=== PATIENT | female | born 1980 | race African-American/Black ===

== ENCOUNTER 2018-04-28 12:35 | Emergency (ER) | payer MEDICAID ==
[~2018-04-28] VITALS: Ht 177.8 cm; Wt 100.0 kg
[2018-04-28] MEDS ORDERED: FAMOTIDINE 20MG/2ML VIAL IV STA (15:36)
[2018-04-28] MEDS ORDERED: ONDANSETRON HCL 4MG/2ML INJ IV STA (15:36)
[2018-04-28] MEDS ORDERED: SODIUM CHLORIDE 0.9% 1,000 ML IV ONE (15:36)
[2018-04-28] MEDS ORDERED: MAGNESIUM/ALUMINUM HYDROXIDE/SIMETHICONE 30ML UDC PO STA (15:36)
[2018-04-28 16:44] LABS: BASOPHILS % 0.1 % (0.0-2.0); EOSINOPHILS % 1.4 % (0.0-5.0); HEMATOCRIT. 33.5 % (36.0-48.0); HEMOGLOBIN. 11.2 g/dL (12.0-16.0); LYMPHOCYTES % 17.5 % (20.0-50.0); MEAN CORPUSCULAR HEMOGLOBIN 28.2 pg (28.0-32.0); MEAN CORPUSCULAR VOLUME 84.6 fL (81.0-99.0); MEAN PLATELET VOLUME 9.3 fl (7.4-10.4); MONOCYTES % 6.7 % (2.0-8.0); NEUTROPHILS % 74.3 % (40.0-76.0); PLATELET 174 x1000/uL (130-400); RED BLOOD CELL COUNT 3.96 mill/uL (4.2-5.4); RED CELL DISTRIBUTION WIDTH 14.3 % (11.6-14.6)
[2018-04-28 16:50] LABS: INR 1.1; PROTHROMBIN TIME 10.6 sec (9.1-11.1)
[2018-04-28 16:51] LABS: CHLORIDE 105 mEq/L (98-107)
[2018-04-28 17:17] LABS: B-HCG QUANTITATIVE 28755 mIU/mL (<3)
[2018-04-28 21:55] VITALS: BP 107/80
== END 2018-04-28 21:56 | disposition home or self-care (01) ==
LOC: ER 13:54
DX: O20.0 Threatened abortion (principal); O16.2 Unspecified maternal hypertension, second trimester; Z3A.21 21 weeks gestation of pregnancy; Z98.890 Other specified postprocedural states
CPT/HCPCS: 36415; 76805; 80053; 83690; 84484; 84702; 85025; 85610; 86850; 86900; 86901; 93005; 96361; 96374; 96375; 99284; J2405; J3490; J7030

== ENCOUNTER 2019-01-15 10:50 | Emergency (ER) | payer MEDICAID ==
[~2019-01-15] VITALS: Ht 180.3 cm; Wt 108.0 kg
[2019-01-15 12:02] LABS: BASOPHILS % 0.2 % (0.0-2.0); EOSINOPHILS % 0.8 % (0.0-5.0); HEMATOCRIT. 37.4 % (36.0-48.0); HEMOGLOBIN. 12.3 g/dL (12.0-16.0); LYMPHOCYTES % 14.3 % (20.0-50.0); MEAN CORPUSCULAR HEMOGLOBIN 26.2 pg (28.0-32.0); MEAN CORPUSCULAR VOLUME 79.6 fL (81.0-99.0); MEAN PLATELET VOLUME 8.4 fl (7.4-10.4); MONOCYTES % 6.8 % (2.0-8.0); NEUTROPHILS % 77.9 % (40.0-76.0); PLATELET 203 x1000/uL (130-400); RED CELL DISTRIBUTION WIDTH 17.2 % (11.6-14.6)
[2019-01-15 12:07] LABS: CHLORIDE 103 mEq/L (98-107)
[2019-01-15 12:10] LABS: CLARITY URINE CLEAR (CLEAR); COLOR URINE YELLOW (YELLOW); KETONES URINE NEGATIVE (NEGATIVE); LEUKOCYTE ESTERASE URINE NEGATIVE (NEGATIVE); NITRITE URINE NEGATIVE (NEGATIVE); OCCULT BLOOD URINE 2+ (NEGATIVE); PROTEIN URINE NEGATIVE (NEGATIVE); SPECIFIC GRAVITY URINE 1.013 (1.005-1.030); UROBILINOGEN URINE 0.2 E.U./dL (0.2-1.0)
[2019-01-15 12:50] VITALS: BP 128/85
== END 2019-01-15 13:56 | disposition home or self-care (01) ==
LOC: ER 13:18
DX: R53.1 Weakness (principal); I10 Essential (primary) hypertension; Z98.890 Other specified postprocedural states
CPT/HCPCS: 36415; 81003; 93005; 99284

== ENCOUNTER 2021-09-16 17:03 | Observation (INO) | payer MEDICAID ==
[~2021-09-16] VITALS: Ht 180.3 cm; Wt 137.0 kg
[2021-09-16] MEDS ORDERED: ASPI-1497 MT (18:28)
[2021-09-16] MEDS ORDERED: LABE200T9 MT (18:28)
[2021-09-16] MEDS ORDERED: LABETALOL HCL 100MG TABLET PO NR (20:09)
== END 2021-09-16 22:18 | disposition home or self-care (01) ==
LOC: L&D 17:03 → 8 EST LDRP 17:20
PROVIDERS: ADMIT Obstetrics & Gynecology; ATTEND Obstetrics & Gynecology
DX: O13.3 Gestational [pregnancy-induced] hypertension without significant proteinuria, third trimester (principal); Z79.899 Other long term (current) drug therapy; Z3A.38 38 weeks gestation of pregnancy
CPT/HCPCS: 76805; 76818; G0378; 59025

== ENCOUNTER 2021-09-20 07:41 | Inpatient (IN) | payer MEDICAID ==
[~2021-09-20] VITALS: Ht 180.3 cm; Wt 137.0 kg
[~2021-09-20 07:41] MED LIST: ASPI-1497 MT; LABE200T9 MT
[2021-09-20] MEDS ORDERED: CITRIC ACID/SODIUM CITRATE SOLN 30ML UDC PO NR (08:15)
[2021-09-20] MEDS ORDERED: DEXT 5%/LR + PITOCIN 20UNITS/L 1,000 ML IV SCH ×2 (08:30→13:15)
[2021-09-20] MEDS ORDERED: NALOXONE HCL 0.4 MG/ML 1ML VIAL IM PRN (08:30)
[2021-09-20] MEDS ORDERED: METHYLERGONOVINE MALEATE 0.2 MG/ML IM PRN (08:30)
[2021-09-20] MEDS ORDERED: CARBOPROST TROMETHAMINE 250 MCG/ML AMPUL IM PRN (08:30)
[2021-09-20 08:47] LABS: BASOPHILS % 0.1 % (0.0-2.0); EOSINOPHILS % 1.3 % (0.0-5.0); HEMATOCRIT. 33.4 % (36.0-48.0); HEMOGLOBIN. 11.4 g/dL (12.0-16.0); LYMPHOCYTES % 18.3 % (20.0-50.0); MEAN CORPUSCULAR HEMOGLOBIN 27.1 pg (28.0-32.0); MEAN CORPUSCULAR VOLUME 79.3 fL (81.0-99.0); MONOCYTES % 7.6 % (2.0-8.0); NEUTROPHILS % 72.7 % (40.0-76.0); PLATELET 184 x1000/uL (130-400); RED BLOOD CELL COUNT 4.21 mill/uL (4.2-5.4); RED CELL DISTRIBUTION WIDTH 16.6 % (11.6-14.6)
[2021-09-20 08:51] LABS: PARTIAL THROMBOPLASTIN TIME 23.9 sec (23.4-31.0); PROTHROMBIN TIME 10.4 sec (9.6-11.0)
[2021-09-20] MEDS: LACTATED RINGERS 1,000 ML IV SCH ×2 (09:02→11:30)
[2021-09-20] MEDS ORDERED: FENTANYL CITRATE/PF 50MCG/ML 2ML VIAL ONE (09:06)
[2021-09-20] MEDS ORDERED: MORPHINE SULFATE/PF 1MG/ML 10ML AMP ONE (09:06)
[2021-09-20] MEDS ORDERED: EPHEDRINE SULFATE 50MG/ML VIAL ONE (09:07)
[2021-09-20] MEDS ORDERED: PHENYLEPHRINE HCL 10 MG/ML 1ML (IV VIAL) IV ONE (09:07)
[2021-09-20] MEDS ORDERED: DIPHENHYDRAMINE 50MG/ML VIAL ONE (09:07)
[2021-09-20] MEDS ORDERED: CEFAZOLIN SODIUM 1000MG/VIAL ONE (09:07)
[2021-09-20] MEDS ORDERED: OXYTOCIN 10 UNITS/ML 1ML ONE (09:07)
[2021-09-20] MEDS ORDERED: ONDANSETRON HCL 4MG/2ML INJ ONE ×2 (09:07→09:15)
[2021-09-20 09:18] LABS: CHLORIDE 107 mEq/L (98-107)
[2021-09-20 09:35] LABS: HEPATITIS B SURFACE ANTIGEN NEGATIVE
[2021-09-20] MEDS ORDERED: LABETALOL HCL 5MG/ML VIAL 20ML IV PRN (10:30)
[2021-09-20 11:27] LABS: CLARITY URINE CLEAR (CLEAR); COLOR URINE YELLOW (YELLOW); KETONES URINE NEGATIVE (NEGATIVE); LEUKOCYTE ESTERASE URINE NEGATIVE (NEGATIVE); NITRITE URINE NEGATIVE (NEGATIVE); OCCULT BLOOD URINE NEGATIVE (NEGATIVE); PH URINE 6.5 (4.5-8.0); PROTEIN URINE NEGATIVE (NEGATIVE); SPECIFIC GRAVITY URINE 1.013 (1.005-1.030); UROBILINOGEN URINE 0.2 E.U./dL (0.2-1.0)
[2021-09-20 11:57] LABS: *AMPHETAMINES SCREEN URINE NEGATIVE (NEGATIVE); *BARBITURATES SCREEN URINE NEGATIVE (NEGATIVE); *BENZODIAZEPINES SCREEN URINE NEGATIVE (NEGATIVE); *COCAINE SCREEN URINE NEGATIVE (NEGATIVE); CANNABINOID URINE SCREEN NEGATIVE (NEGATIVE); METHADONE URINE SCREEN NEGATIVE (NEGATIVE); OPIATES URINE SCREEN NEGATIVE (NEGATIVE); PHENCYCLIDINE URINE SCREEN NEGATIVE (NEGATIVE)
[2021-09-20] MEDS ORDERED: KETOROLAC 60MG/2ML VIAL IM ONE (12:37)
[2021-09-20] MEDS ORDERED: ONDANSETRON HCL 4MG/2ML INJ IV PRN (13:15)
[2021-09-20] MEDS ORDERED: NALOXONE HCL 0.4 MG/ML 1ML VIAL IV PRN (13:15)
[2021-09-20] MEDS ORDERED: DIPHENHYDRAMINE 50MG/ML VIAL IV PRN (13:15)
[2021-09-20] MEDS ORDERED: LANOLIN OINT 7GM TUBE TOP PRN (13:15)
[2021-09-20] MEDS ORDERED: IBUPROFEN 400MG TABLET PO PRN (13:15)
[2021-09-20] MEDS ORDERED: MAGNESIUM 4 G PREMIX 100 ML IV NR (13:15)
[2021-09-20] MEDS ORDERED: NALOXONE HCL 0.4MG/ML VIAL IV PRN (13:15)
[2021-09-20] MEDS ORDERED: BUTORPHANOL TARTRATE 2 MG/ML VIAL IV PRN (13:15)
[2021-09-20] MEDS ORDERED: RHO(D) IMMUNE GLOBULIN 300 MCG/SYR IM PRN (13:15)
[2021-09-20] MEDS ORDERED: BISACODYL 10MG SUPP PR PRN (13:15)
[2021-09-20] MEDS: MAGNESIUM 20 G PREMIX (L & D) 500 ML IV SCH (13:48)
[2021-09-20 15:30] VITALS: BP 121/75
[2021-09-20 15:45] VITALS: BP 126/90
[2021-09-20] MEDS: LABETALOL HCL 200MG TABLET PO SCH ×2 (15:49→22:03)
[2021-09-20] MEDS: KETOROLAC 30MG/ML VIAL IV SCH ×2 (15:49→22:02)
[2021-09-20 16:45] VITALS: BP 130/78
[2021-09-20] MEDS: SIMETHICONE 80MG TABLET CHEW PO SCH (19:58)
[2021-09-20] MEDS: DOCUSATE SODIUM 100MG CAPSULE PO SCH (19:59)
[2021-09-20 20:00] VITALS: BP 120/77
[2021-09-20] MEDS ORDERED: DIPHENHYDRAMINE 25MG CAPSULE PO PRN (21:00)
[2021-09-21 00:09] VITALS: BP 131/82
[2021-09-21 04:00] VITALS: BP 115/68
[2021-09-21] MEDS: KETOROLAC 30MG/ML VIAL IV SCH (04:52)
[2021-09-21] MEDS: LABETALOL HCL 200MG TABLET PO SCH ×3 (05:55→21:59)
[2021-09-21] MEDS: MAGNESIUM 20 G PREMIX (L & D) 500 ML IV SCH (06:00)
[2021-09-21 06:55] LABS: BASOPHILS % 0.2 % (0.0-2.0); EOSINOPHILS % 1.3 % (0.0-5.0); HEMATOCRIT. 26.7 % (36.0-48.0); LYMPHOCYTES % 13.1 % (20.0-50.0); MEAN CORPUSCULAR HEMOGLOBIN 26.7 pg (28.0-32.0); MEAN CORPUSCULAR VOLUME 79.3 fL (81.0-99.0); MEAN PLATELET VOLUME 9.7 fl (7.4-10.4); MONOCYTES % 9.2 % (2.0-8.0); NEUTROPHILS % 76.2 % (40.0-76.0); PLATELET 146 x1000/uL (130-400); RED BLOOD CELL COUNT 3.36 mill/uL (4.2-5.4); RED CELL DISTRIBUTION WIDTH 16.6 % (11.6-14.6)
[2021-09-21 08:00] VITALS: BP 104/61
[2021-09-21] MEDS: FERROUS SULFATE 325MG TABLET PO SCH ×3 (08:01→17:54)
[2021-09-21] MEDS: SIMETHICONE 80MG TABLET CHEW PO SCH ×4 (08:01→20:12)
[2021-09-21] MEDS: PRENATAL VIT/FE FUMARATE/FA TABLET PO SCH (09:00)
[2021-09-21] MEDS: ACETAMINOPHEN WITH CODEINE 300/30MG TABLET PO PRN ×2 (12:33→20:15)
[2021-09-21 13:43] VITALS: BP 125/72
[2021-09-21 16:00] VITALS: BP 121/78
[2021-09-21 20:00] VITALS: BP 135/86
[2021-09-21] MEDS: DOCUSATE SODIUM 100MG CAPSULE PO SCH (20:12)
[2021-09-22] VITALS: BP 116/82
[2021-09-22] MEDS: ACETAMINOPHEN WITH CODEINE 300/30MG TABLET PO PRN (00:38)
[2021-09-22] MEDS: IBUPROFEN 800MG TABLET PO PRN ×3 (03:25→17:49)
[2021-09-22 03:58] VITALS: BP 135/81
[2021-09-22] MEDS: LABETALOL HCL 200MG TABLET PO SCH ×3 (05:54→21:47)
[2021-09-22 08:00] VITALS: BP 144/80
[2021-09-22] MEDS: SIMETHICONE 80MG TABLET CHEW PO SCH ×4 (08:51→21:47)
[2021-09-22] MEDS: FERROUS SULFATE 325MG TABLET PO SCH ×3 (08:51→17:49)
[2021-09-22] MEDS: PRENATAL VIT/FE FUMARATE/FA TABLET PO SCH (08:51)
[2021-09-22 16:00] VITALS: BP 141/90
[2021-09-22 21:18] VITALS: BP 145/88
[2021-09-22] MEDS: DOCUSATE SODIUM 100MG CAPSULE PO SCH (21:47)
[2021-09-23] VITALS: BP 144/80
[2021-09-23] MEDS: IBUPROFEN 800MG TABLET PO PRN ×2 (04:32→10:35)
[2021-09-23 04:58] VITALS: BP 161/81
[2021-09-23] MEDS: LABETALOL HCL 200MG TABLET PO SCH (06:22)
[2021-09-23] MEDS ORDERED: IBUP-2030 PO (07:05)
[2021-09-23] MEDS ORDERED: LABE200T9 PO (07:06)
[2021-09-23 08:00] VITALS: BP 160/94
[2021-09-23 10:35] VITALS: BP 160/94
== END 2021-09-23 13:00 | disposition home or self-care (01) | DRG 539 ==
LOC: OBSVTOIN 07:41 → 8 EST LDRP 07:41 → 8EST 15:20
PROVIDERS: ADMIT Obstetrics & Gynecology; ATTEND Obstetrics & Gynecology
PROC: 10D00Z1 Extraction of Products of Conception, Low, Open Approach (ICD-10-PCS; principal; 2021-09-20)
PROC: 0UB70ZZ Excision of Bilateral Fallopian Tubes, Open Approach (ICD-10-PCS; 2021-09-20)
PROC: 0UN90ZZ Release Uterus, Open Approach (ICD-10-PCS; 2021-09-20)
DX: O34.211 Maternal care for low transverse scar from previous cesarean delivery (principal); O24.92 Unspecified diabetes mellitus in childbirth; O13.4 Gestational [pregnancy-induced] hypertension without significant proteinuria, complicating childbirth; D62 Acute posthemorrhagic anemia; Z20.822 Contact with and (suspected) exposure to COVID-19; O99.892 Other specified diseases and conditions complicating childbirth; N73.6 Female pelvic peritoneal adhesions (postinfective); O99.214 Obesity complicating childbirth; O99.02 Anemia complicating childbirth; Z3A.38 38 weeks gestation of pregnancy; Z37.0 Single live birth; Z30.2 Encounter for sterilization
CPT/HCPCS: 36415; 80053; 80305; 80359; 81003; 83735; 85025; 86592; 86703; 86762; 86850; 86900; 86920; 87340; 87426; 88302; 88307; G0378; J0690; J1200; J1885; J2274; J2370; J2405; J2590; J3010; J3475; J3490; J7120

== ENCOUNTER 2023-01-29 20:01 | Emergency (ER) | payer MEDICAID ==
[~2023-01-29] VITALS: Ht 167.6 cm; Wt 127.2 kg
[~2023-01-29 20:01] MED LIST changes: +IBUP-2030 PO; -LABE200T9 MT; +LABE200T9 PO
[2023-01-29 20:07] VITALS: BP 184/108; PULSE 73; RESP 16; TEMP 98.6; O2SAT 100
[2023-01-29 21:06] LABS: BASOPHILS % 0.2 % (0.0-2.0); EOSINOPHILS % 1.5 % (0.0-5.0); HEMATOCRIT. 34.5 % (36.0-48.0); HEMOGLOBIN. 11.3 g/dL (12.0-16.0); LYMPHOCYTES % 27.2 % (20.0-50.0); MEAN CORPUSCULAR HEMOGLOBIN 26.5 pg (28.0-32.0); MEAN CORPUSCULAR HGB CONC 32.8 g/dL (31.0-37.0); MEAN CORPUSCULAR VOLUME 80.7 fL (81.0-99.0); MEAN PLATELET VOLUME 8.9 fl (7.4-10.4); MONOCYTES % 6.3 % (2.0-8.0); NEUTROPHILS % 64.8 % (40.0-76.0); PLATELET 223 x1000/uL (130-400); RED BLOOD CELL COUNT 4.27 mill/uL (4.2-5.4); RED CELL DISTRIBUTION WIDTH 15.8 % (11.6-14.6)
[2023-01-29 21:22] LABS: HCG SCREEN NEGATIVE
[2023-01-29 21:23] LABS: CHLORIDE 104 mEq/L (98-107); INDEX HEMOLYSI 2 (1-3); INDEX ICTERIC 1 (1-4); INDEX LIPEMIC 1 (1-3); SODIUM 136 mEq/L (136-145)
[2023-01-29 21:33] LABS: ALANINE AMINOTRANSFERASE 20 IU/L (13-61); ALBUMIN 3.5 g/dL (3.4-5.0); ASPARTATE AMINOTRANSFERASE 22 IU/L (15-37); BILIRUBIN TOTAL 0.4 mg/dL (0.1-1.0); CALCIUM 8.7 mg/dL (8.5-10.1); CARBON DIOXIDE 27 mEq/L (21-32); CREATININE 0.8 mg/dL (0.6-1.3); GLUCOSE 97 mg/dL (70-105); NT PRO B-TYPE NATRIURETIC PEP 243 pg/mL (5-125); PROTEIN TOTAL 7.4 g/dL (6.0-8.3); TROPONIN I HIGH SENSITIVITY 8 ng/L (<54); UREA NITROGEN BLOOD 15 mg/dL (7-21)
[2023-01-29 23:32] LABS: TROPONIN I HIGH SENSITIVITY 8 ng/L (<54)
== END 2023-01-30 00:58 | disposition home or self-care (01) ==
LOC: ER 20:01
DX: R07.9 Chest pain, unspecified (principal); I10 Essential (primary) hypertension; Z98.890 Other specified postprocedural states
CPT/HCPCS: 36415; 71045; 80053; 83880; 84484; 84703; 85025; 85379; 93005; 99285

== ENCOUNTER 2023-10-28 20:14 | Emergency (ER) | payer MEDICAID ==
[~2023-10-28] VITALS: Ht 175.3 cm; Wt 127.1 kg
[2023-10-28 20:36] VITALS: O2SAT 99
[2023-10-28 23:07] LABS: BASOPHILS % 0.2 % (0.0-2.0); EOSINOPHILS % 1.7 % (0.0-5.0); HEMATOCRIT. 33.9 % (36.0-48.0); HEMOGLOBIN. 11.1 g/dL (12.0-16.0); LYMPHOCYTES % 29.2 % (20.0-50.0); MEAN CORPUSCULAR HEMOGLOBIN 27.1 pg (28.0-32.0); MEAN CORPUSCULAR HGB CONC 32.8 g/dL (31.0-37.0); MEAN CORPUSCULAR VOLUME 82.6 fL (81.0-99.0); MONOCYTES % 6.6 % (2.0-8.0); NEUTROPHILS % 62.3 % (40.0-76.0); PLATELET 186 x1000/uL (130-400); RED CELL DISTRIBUTION WIDTH 15.3 % (11.6-14.6); WHITE BLOOD COUNT 6.2 x1000/uL (4.5-11.0)
[2023-10-28 23:12] LABS: CHLORIDE 106 mEq/L (98-107); POTASSIUM 3.6 mEq/L (3.5-5.1); SODIUM 137 mEq/L (136-145)
[2023-10-28 23:13] LABS: CARBON DIOXIDE 26 mEq/L (21-32)
[2023-10-28 23:14] LABS: CALCIUM 8.8 mg/dL (8.7-10.4)
[2023-10-28 23:18] LABS: CREATININE 0.8 mg/dL (0.6-1.0)
[2023-10-28 23:19] LABS: GLUCOSE 87 mg/dL (70-105); UREA NITROGEN BLOOD 14 mg/dL (9-23)
[2023-10-28] MEDS: KETOROLAC 15MG/ML VIAL IM ONE (23:55)
[2023-10-29] MEDS ORDERED: LIDO700A15 TP (00:28)
[2023-10-29] MEDS ORDERED: NAPR-1176 MT (00:28)
[2023-10-29] MEDS ORDERED: CLONIDINE 0.1MG TABLET PO ONE (01:45)
[2023-10-29 02:16] VITALS: BP 197/119; PULSE 78; RESP 20; TEMP 98.8
== END 2023-10-29 02:19 | disposition home or self-care (01) ==
LOC: ER 20:29
DX: M79.89 Other specified soft tissue disorders (principal); M79.605 Pain in left leg; I10 Essential (primary) hypertension
CPT/HCPCS: 99285; 93971; 80048; 85025; 36415; 96372; J1885